=== PATIENT | female | born 1960 | race Hispanic/Latino ===

== ENCOUNTER 2022-05-31 19:12 | Emergency (ER) | payer OTHER ==
--- OUTSIDE RECORDS SUMMARY | 2022-05-31 19:16 | XMS REPORT | Continuity of Care Document ---
:1960 Author Organization [facility] t Address [address] [place] [address] [place] [id number] Care Team Providers Name Role Phone [phone] Primary Care Physician Unavailable [id number] Attending Clinician Unavailable [id number] Attending Clinician Unavailable Seth Latham DO Attending Clinician Akbar White DO Attending Clinician BABS JEFFERSON Attending Clinician Unavailable Payers Payer Name Policy Type Policy Number Effective Date Expiration Date S teresita CIGNA-CIGNA/PPO 2 [id number] 2020 00:00:00 CIGNA HMO POS [id number] 2015 00:00:00 OPEN ACCESS BCBS PPO POS OUT [id number] 2017 00:00:00 OF STATE GENERIC Problems Condition Condition Condition Status Onset Resolution Last Treating Co mments Source Name Details Category Date Date Treatment Clinician Date No known No known Disease Kelse y active active Seybold problems problems Allergies, Adverse Reactions, Alerts This patient has no known allergies or adverse reactions. Social History Social Habit Start Date Stop Date Quantity Comments Source Exposure to Not sure Brianna rios SARS-CoV-2 (event) Sex Ass[birth year] At [birth year] Brianna escobar 00:00:00 00:00:00 Smoking Status Start Date Stop Date Source Tobacco smoking consumption unknown Brianna Soriano Medications Ordered Filled Start Stop Current Ordering Indication Dosage Frequency Signature Comments Components Source Medication Medication Date Date Medication? Clinician (SIG) Name Name methylPREDN 2020-07 Yes [id number] 1{bradly} Take 1 bradly Brianna ISolone 4 2-15 by mouth Seybol d MG oral 00:00: See Admin Tablet 00 Instructio Therapy ns Use as Pack directed Amoxicillin 2020-07- No [id number] 1{tbl} Take 1 Brianna -Pot 2-15 12-23 tablet by Seybold Clavulanate 00:00: 05:59 mouth 2 875-125 MG 00 :00 times oral Tablet daily for 7 days Meloxicam Yes [id number] 7.5mg Take 1 Brianna 7.5 MG oral 4-09 tablet Seybol d Tablet 00:00: (7.5 mg 00 total) by mouth daily Vital Signs Vital Name Observation Time Observation Value Comments Source WEIGHT 2020-06-17 10:17:51 64.5 kg Procedures This patient has no known procedures. Encounters Start End Encounter Admission Attending Care Care Encounter Source Date/Time Date/Time Type Type Clinicians Facility Department ID 2022-02-26 2022-02-26 Outpatient [id number] BRIANNA REED [id number] Brianna 09:20:00 09:20:00 Seybol d 2022-02-26 2022-02-26 Outpatient [id number] BRIANNA REED [id number] Brianna 09:10:00 09:10:00 Seybol d 2022-02-26 2022-02-26 Office KimmoJoao brunson [id number] Brianna 08:15:00 08:30:00 Visit Seth Parekh [id number] Se ybold [id number] 2021-07-09 2021-07-09 [facility] SELAM White [id number] Brianna 11:30:00 11:30:00 esther Salinas [id number] S eybold [id number] 2020-06-17 2020-06-17 Outpatient VERO JEFFERSON MDA MDA [id number] 09:18:29 11:18:32 BABS long n Results This patient has no known results.
[2022-05-31] MEDS ORDERED: LIDOCAINE VISCOUS 2% SOLN 15 ML UDC ONE (19:38)
--- NOTE | 2022-05-31 21:13 | EDPHYS ---
Physician Documentation [facility] Name: Jenna Cheatham Age: 62 yrs Sex: Female : 1960 Arrival Date: 05/31/2022 Time: 19:15 Bed 16 Private MD: ED Physician Elías Bradford HPI: 05/31 19:40 This 62 yrs old Female presents to ER via Ambulatory with complaints of cp Foreign Body In Ear. 19:40 The patient presents with a foreign body sensation, presumably from an insect. The cp complaints affect the left ear. Onset: The symptoms/episode began/occurred just prior to arrival. 19:40 Associated signs and symptoms: The patient has no apparent associated signs or cp symptoms. Patient presents to ED with sensation of moving object in left ear canal. Historical: - Allergies: 19:35 No Known Allergies; kd3 - Home Meds: 19:35 None [Active]; kd3 - PMHx: 19:35 None; kd3 - Immunization history:: Adult Immunizations up to date, Client reports receiving the 1st dose of the Covid vaccine. - Social history:: Smoking status: Patient denies any tobacco usage or history of. ROS: 19:45 ENT: Positive for left ear canal foreign body, Negative for drainage from ear(s), sore cp throat, difficulty swallowing, difficulty handling secretions. 19:45 Constitutional: Negative for fever. cp 19:45 Respiratory: Negative for cough, shortness of breath, wheezing. 19:45 Skin: Negative for rash. 19:45 All other systems are negative. Exam: 19:45 Constitutional: The patient appears in no acute distress, alert, awake, well developed, cp well nourished, anxious. 19:45 Head/Face: Normocephalic, atraumatic. cp 19:45 Eyes: Periorbital structures: appear normal, Conjunctiva: normal, no exudate, no injection, Lids and lashes: appear normal, bilaterally. 19:45 ENT: External ear(s): are unremarkable, Ear canal(s): foreign body, small brown colored insect noted mid floor of left ear canal, TM's: dullness, bilaterally, Nose: is normal, Mouth: Lips: moist, Oral mucosa: moist, Posterior pharynx: Airway: no evidence of obstruction, patent. 19:45 Neck: ROM/movement: is normal, is supple, without pain, no range of motions limitations. 19:45 Chest/axilla: Inspection: normal. 19:45 Cardiovascular: Rate: normal. 19:45 Respiratory: the patient does not display signs of respiratory distress, Respirations: normal. 19:45 Skin: no rash present. Vital Signs: 19:33 BP 168 / 74; Pulse 76; Resp 19; Temp 98.2(O); Pulse Ox 98% on R/A; Weight 63.5 kg; kd3 Height 5 ft. 4 in. (162.56 cm); Pain 0/10; 21:19 BP 132 / 70; Pulse 71; Resp 16 S; Pulse Ox 97% on R/A; Pain 0/10; aa9 19:33 Body Mass Index 24.03 (63.50 kg, 162.56 cm) kd3 MDM: 19:26 Patient medically screened. cp 21:12 Data reviewed: vital signs, nurses notes. cp 21:12 Counseling: I had a detailed discussion with the patient and/or guardian regarding: the cp historical points, exam findings, and any diagnostic results supporting the discharge/admit diagnosis, to return to the emergency department if symptoms worsen or persist or if there are any questions or concerns that arise at home. Response to treatment: the patient's symptoms have resolved after treatment, after placement of viscous lidocaine, small spider exited left ear canal, and as a result, I will discharge patient. Administered Medications: 19:56 Drug: Viscous Lidocaine Liquid (4 %) 5 ml {Note: L ear canal.} Route: Mucous Membrane; aa9 Disposition Summary: 05/31/22 21:12 Discharge Ordered Location: Home cp Problem: new cp Symptoms: are resolved cp Condition: Stable cp Diagnosis - Foreign body in left ear - resolved cp Followup: cp - With: Private Physician - When: 1 - 2 days - Reason: Worsening of condition Discharge Instructions: - Discharge Summary Sheet cp - Ear Foreign Body cp Forms: - Medication Reconciliation Form cp - Thank You Letter cp - Antibiotic Education cp - Prescription Opioid Use cp Signatures: Jack Longo PA PA cp Doucette, Kyli RN RN kd3 Tete Hodge RN RN aa9
--- NOTE | 2022-05-31 21:13 | ER ---
Nurse's Notes [facility] Name: Jenna Cheatham Age: 62 yrs Sex: Female : 1960 Arrival Date: 05/31/2022 Time: 19:15 Bed 16 Private MD: Diagnosis: Foreign body in left ear-resolved Presentation: 05/31 19:33 Chief complaint: Patient states: I went to lay in my bed around 6:30 and i just felt kd3 like something was crawling around in my left ear. my right ear feel completely fine. it doesn't hurt or anything but there is some pressure and i can feel it crawling around in there. Coronavirus screen: Vaccine status: Patient reports receiving the 1st dose of the Covid vaccine. Ebola Screen: No symptoms or risks identified at this time. Initial Sepsis Screen: Does the patient meet any 2 criteria? No. Patient's initial sepsis screen is negative. Initial Sepsis Screen: Does the patient have a suspected source of infection? No. Patient's initial sepsis screen is negative. Risk Assessment: Do you want to hurt yourself or someone else? Patient reports no desire to harm self or others. 19:33 Method Of Arrival: Ambulatory kd3 19:33 Acuity: SUZANNE 4 kd3 19:33 Onset of symptoms was May 31, 2022. kd3 Triage Assessment: 19:35 General: Appears in no apparent distress. Behavior is anxious. Pain: Denies pain. kd3 Neuro: Level of Consciousness is awake, alert, obeys commands, Oriented to person, place, time, situation. Cardiovascular: Patient's skin is warm and dry. Respiratory: Airway is patent Trachea midline Respiratory effort is even, unlabored, Respiratory pattern is regular, symmetrical. GI: No signs and/or symptoms were reported involving the gastrointestinal system. : No signs and/or symptoms were reported regarding the genitourinary system. Derm: No signs and/or symptoms reported regarding the dermatologic system. Historical: - Allergies: 19:35 No Known Allergies; kd3 - Home Meds: 19:35 None [Active]; kd3 - PMHx: 19:35 None; kd3 - Immunization history:: Adult Immunizations up to date, Client reports receiving the 1st dose of the Covid vaccine. - Social history:: Smoking status: Patient denies any tobacco usage or history of. Screenin:36 Abuse screen: Denies threats or abuse. Denies injuries from another. Nutritional aa9 screening: No deficits noted. Tuberculosis screening: No symptoms or risk factors identified. Fall Risk None identified. Assessment: 19:35 General: Appears uncomfortable, well groomed, Behavior is cooperative, appropriate for aa9 age, anxious. Pain: Denies pain. Neuro: Level of Consciousness is awake, alert, obeys commands, Oriented to person, place, time, situation. Cardiovascular: Patient's skin is warm and dry. Respiratory: Airway is patent Respiratory effort is even, unlabored. GI: No signs and/or symptoms were reported involving the gastrointestinal system. : No signs and/or symptoms were reported regarding the genitourinary system. EENT: Ear canal w/ foreign body noted from left ear. Derm: Skin is intact, is healthy with good turgor. Musculoskeletal: No signs and/or symptoms reported regarding the musculoskeletal system. 20:29 Reassessment: Patient appears in no apparent distress at this time. pt turned head to aa9 allow viscous lidocaine to seep out L ear canal, spider visualized in lidocaine seeping into the towel. 21:08 Reassessment: Patient appears in no apparent distress at this time. General: Appears aa9 comfortable, Behavior is calm, cooperative, appropriate for age. Neuro: Level of Consciousness is awake, alert, obeys commands, Oriented to person, place, time, situation. Cardiovascular: Patient's skin is warm and dry. Respiratory: Airway is patent Respiratory effort is even, unlabored. 21:19 Reassessment: pt and spouse left ER, deny concerns, understands discharge instructions. aa9 Vital Signs: 19:33 BP 168 / 74; Pulse 76; Resp 19; Temp 98.2(O); Pulse Ox 98% on R/A; Weight 63.5 kg; kd3 Height 5 ft. 4 in. (162.56 cm); Pain 0/10; 21:19 BP 132 / 70; Pulse 71; Resp 16 S; Pulse Ox 97% on R/A; Pain 0/10; aa9 19:33 Body Mass Index 24.03 (63.50 kg, 162.56 cm) kd3 ED Course: 19:15 Patient arrived in ED. mr 19:20 Jack Longo PA is PHCP. cp 19:20 Elías Bradford MD is Attending Physician. cp 19:30 Tete Hodge, RN is Primary Nurse. aa9 19:35 Triage completed. kd3 19:35 Arm band placed on right wrist. kd3 19:36 Patient has correct armband on for positive identification. Bed in low position. Call aa9 light in reach. Side rails up X2. Adult w/ patient. 21:16 No provider procedures requiring assistance completed. Patient did not have IV access aa9 during this emergency room visit. Administered Medications: 19:56 Drug: Viscous Lidocaine Liquid (4 %) 5 ml {Note: L ear canal.} Route: Mucous Membrane; aa9 Medication: 21:09 VIS not applicable for this client. aa9 Outcome: 21:12 Discharge ordered by MD. cp 21:18 Discharged to home ambulatory, with significant other. aa9 21:18 Condition: stable 21:18 Discharge instructions given to patient, family, Instructed on discharge instructions, follow up and referral plans. Demonstrated understanding of instructions, follow-up care. 21:20 Patient left the ED. aa9 Signatures: Miriam Mark mr Jack Longo PA PA Marii López, RN RN kd3 Tete Hodge, RN RN aa9
[2022-05-31 22:25] VITALS: TEMP 98.2
[2022-05-31 22:26] VITALS: BP 132/70; O2SAT 97
== END 2022-05-31 21:20 | disposition home or self-care (01) ==
LOC: ER 19:12
DX: T16.2XXA Foreign body in left ear, initial encounter (principal)
CPT/HCPCS: 99283